=== PATIENT | male | born 1965 | race Hispanic/Latino ===

== ENCOUNTER 2024-08-12 16:15 | Emergency (ER) | payer OTHER, BC ==
[~2024-08-12] VITALS: Ht 182.9 cm; Wt 77.1 kg
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
[2024-08-12] MEDS: ibuPROFEN 800 MG TAB PO ONE (17:06)
[2024-08-12] MEDS ORDERED: IBUP-2077 PO (17:43)
[2024-08-12] MEDS ORDERED: CYCL-309 PO (17:43)
[2024-08-12 17:50] VITALS: BP 129/87; PULSE 85; RESP 16; TEMP 97.9; O2SAT 97
== END 2024-08-12 17:54 | disposition home or self-care (01) ==
LOC: EDH 16:15
DX: S39.012A Strain of muscle, fascia and tendon of lower back, initial encounter (principal); S29.012A Strain of muscle and tendon of back wall of thorax, initial encounter; Z88.5 Allergy status to narcotic agent; V89.2XXA Person injured in unspecified motor-vehicle accident, traffic, initial encounter; Y93.89 Activity, other specified; Y92.488 Other paved roadways as the place of occurrence of the external cause; Y99.8 Other external cause status
CPT/HCPCS: 72070; 72100; 99284